=== PATIENT | female | born 1955 | race Caucasian/White ===

== ENCOUNTER → 2017-03-28 07:56 | Outpatient (CLI) | payer OTHER, SELFPAY ==
[2017-03-28 07:47] VITALS: BP 106/68
--- NOTE | 2017-03-28 08:02 | RAD_ITS ---
STUDY: X-RAY - RIGHT HAND REASON FOR EXAM: Female, 61 years old. Pain along the second through fifth digits following hyperextension injury. TECHNIQUE: 3 view(s) of the hand. COMPARISON: None. FINDINGS: Normal radiocarpal articulation. Normal distal radioulnar joint. Normal visualized carpal bones. Normal carpal articulations Normal carpometacarpal articulation of the thumb. Normal second through fifth carpometacarpal joints. Normal metacarpi. Normal metacarpophalangeal joint of the thumb. Normal interphalangeal joint of the thumb. Normal proximal and distal phalanges of the thumb. Normal metacarpophalangeal joints of the second through fifth fingers. Normal proximal and distal interphalangeal joints of the second through fifth fingers. Normal phalanges of the second through fifth fingers. The soft tissue structures are unremarkable. RAD/Hand Min 3 Views IMPRESSION: Normal x-ray examination of the hand. Electronically Signed: Duc Fox MD at 8:43 EST Tel [phone], Service support ,
== END ==
PROVIDERS: Family Provider Internal Medicine; PCP Internal Medicine; Visit Provider Physician Assistant Surgical
DX: S66.911A Strain of unspecified muscle, fascia and tendon at wrist and hand level, right hand, initial encounter (principal); X58.XXXA Exposure to other specified factors, initial encounter
CPT/HCPCS: 73130

== ENCOUNTER 2017-06-01 14:00 | Outpatient (RCR) | payer OTHER, SELFPAY ==
--- NOTE | 2017-05-05 14:04 | HP.OTEVAL_ITS ---
Patient's Visit Information FRANSISCA MIRZA is a 61 year old F, referred to Occupational Therapy by ALEJANDRA Courtney,[email or web address], with a diagnosis of Hand and finger strain. Date of Evaluation: 05/05/17 Occupational Therapist: Beatrice Rider - Subjective Subjective: Fransisca arrived and noted she tripped and fell over rubber mat at work on March 28, 2017. She works for [employer]. She noted that as she caught herself with R dominant hand. She noted she was able to watch injury occur and she said she hyperextended hand to the point of it blancing. She notes at time of inital injury she was unable to make active composite fist. - Pain Right Hand 2 Pain Intensity Range: 2, 6 - ROM Wrist: flexion R 0-75, L 0-91; ext R 0-46, L 0-65; radial dev R 0-17, L 0-21 MP: 2-5th: R 10-59, 8-69, 3-69, 3-69, 17-78; L 0-90, 0-91, 0-85, 0-85 ROM Comments: ulnar dev R 0-30, L 0-32. Distal from paln to middle finger while forming composite fist R .5 inch, L o inches. Notes some increased pain and tenderness when forming composite fist. - Strength Emergency Room Registered Nurse: Avg 3 trials R 28, L 50 Lateral Pinch: R 9, L 13 Tripod Pinch: R 8, L 13 Tip-to-Tip Pinch: R 6, L 8 - Sensation Thumb: R 3.22 Index: R 2.38 Middle: R 2.83 Ring: R 2.83 Little: R 2.83 Sensation Comments: She noted that she has numbness in all fingers. She noted she had numbness on distal phalax of all fingers. All touch fingers on volar fingerpad are WFL with 2-5th fingers being 2.83 and thumb 3.22. - DASH-Disabilities of Arm, Shoulder& Hand DASH Sum: 64 - Hand/Wrist Evaluation Total Score of Pain & Functional Sections: 23 - Goals Goal:: Fransisca to increased R diamond cleaner strength by 20-30 lbs to promote increased diamond cleaner to complete ADl/IADls including work tasks by time of d/c. Goal:: Fransisca to increase R hand ROM to than of L nonaffected hand to promote increased formation of composite fist for gripping and manipulating ADl/IADls related tasks by d/c. Goal:: Fransisca to have pain no more than 1/10 during work-related tasks to promote increased 9i0 and ability to return to PLOF by d/c. Goal:: Fransisca to be (I) with all bilateral hand coordination and manipulation tasks needed for ADl/IADls to return to PLFO by d/c. - Rehabilitation General Assessment: Pt., Fransisca, arrived and noted that she fell Feburary 2017 while at work. She notes she has had increased pain and swelling since time of injury. She is R hand dominant and injury occured to R hand. Fransisca noted she has x-ray which indicated no fractures at this time. She is limited due to pain for ADL/IADLs. Dieter nd strength limited at this time. She will start OT to promote decreasing paina nd promoting increased ability to return to PLOF. Rehabilitation Potential: Good - Anticipated Interventions Anticipated Interventions: A/AAROM/PROM, Strengthening, Edema Control, Scar Care , Modalities, Joint Protection/Energy Conservation, Ergonomic Education, Dynamic Sitting Balance, Fine Motor Coord/Tee, ADL Training, Caregiver Training, Home Program - Visit Plan Frequency: 3x /Week Duration: 4 Weeks General Plan: Fransisca to be seen by OT for 3x weekly 30 min session for 4 weeks. SHe has date limit for 04/28/17-06/02/17. OT to work on ROM, strength, endurance, edema management, pain management through modalities, and general ability to return to all ADl/AIDls by d/c. TEXT: Thank you for the opportunity to evaluate your patient. For Medicare and Medicare HMO plans, please review the plan of care and approve it. It will need to be FAXED BACK to us at [phone] for Medicare purposes. Please let me know if there are questions or concerns regarding this plan of care. Physician Signature: Date:
--- NOTE | 2017-06-01 14:46 | HP.OTDCSUM ---
HP - OT D/C Summary It has been my pleasure to treat FRANSISCA MIRZA under orders from ALEJANDRA Courtney, for the diagnosis of Hand and finger strain for a total of 12 visit(s). Please see the following information for a summary of their discharge status. - Objective Objective/Function: Rassessment occured on this date. Pain is persisent and variable. She is able to form composite fist. ROM measurements are as follows: wrist flexion R 0-80, L 0-95; ext R 0-60, L 0-58; supination WFL; radial deviation R 0-15, L 0-21; ulnar R 0-28, L 0-30. MCP 2nd-5th: R 0-66, 0-74, 0-76, 0-83; L 2-4th 0-79, 0-89, 0-81, 0-88. Strength measurements are as follows: personnel administrator R 41, L 46; lateral R 13, L 14; three jaw R 9, L 12; tip pinch R 5, L 7. DASH score progressed from 23 to 15 which further indicates some improvement. - Goals Patient Goals: Regain Mobility, Regain Strength, Decrease Pain, Decrease Swelling/Stiffness, Improve Fine Motor Skills, Use Hand/Wrist/Arm Normally Again, Sleep Better, Decrease Tingling/Numbness, Increase ROM, Be More Independent in ADLS, Resume Former Household Responsibilities (Cooking,Cleaning,Yard, etc.), Resume Hobbies Goal:: Fransisca to increased R personnel administrator strength by 20-30 lbs to promote increased personnel administrator to complete ADl/IADls including work tasks by time of d/c. Goal:: Fransisca to increase R hand ROM to than of L nonaffected hand to promote increased formation of composite fist for gripping and manipulating ADl/IADls related tasks by d/c. Goal:: Fransisca to have pain no more than 1/10 during work-related tasks to promote increased 9i0 and ability to return to PLOF by d/c. Goal:: Fransisca to be (I) with all bilateral hand coordination and manipulation tasks needed for ADl/IADls to return to PLFO by d/c. - Plan Plan: Roger be d/c'd at this time. If she needs addition OT new c9 will be needed. She is to call with questions/concerns. She is to return for follow up at [facility] with GUSTAVO Crenshaw for pain. She may benefit from further imaging if pain persists as an issue. Overall, she has progressed sincetime of inital eval. - D/C Information If there are questions or concerns regarding this patient's occupational therapy, please fell free to call me at [phone]. Thank you for the referral of this patient. Sincerely, Beatrice Rider
== END 2017-06-01 19:00 | disposition home or self-care (01) ==
LOC: OT 14:00
PROVIDERS: Family Provider Internal Medicine; PCP Internal Medicine; Visit Provider Physician Assistant
DX: S66.911D Strain of unspecified muscle, fascia and tendon at wrist and hand level, right hand, subsequent encounter (principal)
CPT/HCPCS: 97035; 97110; 97166; 97530

== ENCOUNTER → 2022-11-24 | Outpatient (CLI) | payer MEDICARE, SELFPAY ==
--- NOTE | 2022-11-24 11:22 | US_ITS ---
STUDY: ABDOMINAL ULTRASOUND - RIGHT UPPER QUADRANT REASON FOR VISIT: Female, 66 years old RUQ pain R/U Cholecystitis TECHNIQUE: Ultrasound evaluation of the right upper quadrant was performed with real-time and static rucker-scale imaging. TECHNICAL QUALITY: Adequate. COMPARISON: None. FINDINGS: Liver: The liver measures 12.6 cm. There is normal echogenicity of the liver. The bile ducts are within normal limits. There is hepatic color flow. The direction of portal flow is hepatopetal. There is no demonstrated mass lesion. Gallbladder: Normal distended gallbladder. The gallbladder wall measures 1.1 mm. There is a negative sonographic Brady''s sign. There is no pericholecystic fluid. There are no gallstones. Common Bile Duct (C.B.D.): The common bile duct measures 4.4 mm. Pancreas: Normal size of the head, body and tail of the pancreas. There is normal echogenicity of the pancreas. There is no demonstrated pancreatic mass or cyst. Right Kidney: Normal size of the right kidney. The right kidney measures 10.9 cm x 4 cm x 3 cm. Normal renal cortex. The right cortex measures 1.0 cm. There is a 1.4 cm x 1 centimeter by 0.9 cm cyst in the upper pole. There is no right hydronephrosis. US/Abdomen Limited IMPRESSION: Small right renal cyst. Electronically Signed: Duc Fox MD at 9:47 EDT ,
== END | disposition home or self-care (01) ==
PROVIDERS: PCP Internal Medicine; Referring Provider Nurse Practitioner Family; Visit Provider Nurse Practitioner Family
DX: R10.11 Right upper quadrant pain (principal)
CPT/HCPCS: 76705

== ENCOUNTER → 2022-11-26 | Outpatient (CLI) | payer MEDICARE, SELFPAY ==
[2022-11-26 11:08] LABS: Absolute Lymphocyte Count 2.08 X10^3/uL (0.83-4.51); Absolute Neutrophil Count 4.8 X10^3/uL (2.0-7.7); Basophil# 0.03 X10^3/uL; Basophil% 0.4 % (0-1); Eosinophils% 5.1 % (0-5); Hematocrit 40.4 % (37-47); Hemoglobin 13.2 g/dL (12.0-15.0); Lymphocyte # 2.08 X10^3/ul (0.83-4.51); Lymphocyte % 26.7 % (19-41); Mean Corp Hgb Conc 32.7 g/dL (32-36); Mean Corpuscular Hgb 29.9 pg (27.0-32.0); Mean Corpuscular Volume 91.4 fL (81-99); Mean Platelet Vol. 10.6 fl (6.2-12.0); Monocyte% 6.4 % (0-10); NRBC Flagged by Analyzer 0 % (0-5); Neutrophil # 4.75 X10^3/uL (2.7-7.7); Neutrophil % 60.9 % (47-70); Platelet Count 198 K/mm3 (150-450); RBC Distribution Width CV 13.5 % (11.6-14.6); RBC Distribution Width SD 45.1 fl (35.1-43.9); Red Blood Count 4.42 M/mm3 (4.2-5.4); White Blood Count 7.8 K/mm3 (4.4-11.0)
[2022-11-26 11:37] LABS: ALB/GLOB Ratio 1.1 RATIO (0.9-2.4); AST(SGOT) 18 U/L (15-37); Alanine Aminotransfer ALT/SGPT 30 U/L (13-56); Albumin, Serum 3.8 g/dL (3.2-5.0); Alkaline Phosphatase 62 U/L (45-117); Amylase 36 U/L (25-115); Anion Gap 2 (5-15); BUN 13 mg/dL (7-18); BUN/Creat Ratio 17.7 RATIO (10-20); Calcium,Total 9.2 mg/dL (8.5-10.1); Chloride 108 mmol/L (98-107); Creatinine, Serum 0.73 mg/dL (0.55-1.02); EST Glomerular Filtration Rate 84 mL/min (>60); Est Glom Filt Rate - Afr Amer 102 mL/min (>60); Globulin 3.4 g/dL (2.2-4.2); Glucose 89 mg/dL (74-106); Lipase 48 U/L (13-75); Potassium 4.3 mmol/L (3.5-5.1); Protein, Total 7.2 g/dL (6.4-8.2); Sodium Level 139 mmol/L (136-145)
== END | disposition home or self-care (01) ==
PROVIDERS: PCP Internal Medicine; Referring Provider Nurse Practitioner Family; Visit Provider Nurse Practitioner Family
DX: R10.11 Right upper quadrant pain (principal)
CPT/HCPCS: 36415; 80053; 82150; 83690; 85025

== ENCOUNTER 2023-02-16 15:00 | Outpatient (RCR) | payer MEDICARE, SELFPAY ==
--- NOTE | 2023-01-03 15:13 | HP.PTEVAL ---
Patient's Visit Information Visit Information Visit Information: KEENAN MIRZA is a 67 year old F referred to Physical Therapy by Dr. Steph Small DO with a diagnosis of PAIN IN RIGHT KNEE. Date of Evaluation: 01/03/23 Physical Therapist: Antonio Hall, PT, Cert MDT, OCS Visit Plan Frequency: 2x /Week Duration: 4 Weeks Plan: PT INTERVTIONS ROM /FLEXABLITY ,STRENGTHENING QUADS/HAMS/HIP ,FUNCTIONAL STRENGTHENING , PROPRIOCEPTION ,BIKE AND MODALITIES Subjective Subjective: This 67 y/o female presents to physical therapy with right knee pain. Patient injury right knee playing pickle ball ~ 6 weeks . Patient attempted to continue playing about 4 times .last time about 2 weeks ago . Patient finished the game but pain became worse. Patient pain medial knee described as ache and occasional sharp pain and edema. Patient aggravating factors kneeling, squat ,stairs ,pivoting occasional wants to give way. Patient pain becomes stiff with sitting to get up. Patient condition get better with ice. Seen DR tried and provided prednisone from the swelling. Patient had x-rays -.Patient denies paresthesia/tingling. Patient has pain at night. Patient condition affects QOL and function as well return to playing pickle ball. Goals to decrease pain and play pickle ball. Patient has osteoporosis. SOCIAL: VOCATION: retired Pain Right Knee: Pain Intensity (Out of 10): 5 Pain Intensity Range: 10 Objective Objective: POSTURE: mild forward posture GAIT: reciprocal pattern mild decrease stance right leg EDEMA: mild effusion knee NEURO: denies paresthesia/tingling AROM: supine knee flexion 0-125 degrees with pain at ER MMT: quads/hamstrings 4/5 ,hip flexion 4/5 , (peak force) hip abd 17 .7 PROPRIOCEPTION: diminished < 60 SEC Special Tests R Knee Dena - Meniscus: Positive R Knee Apley - Meniscus: Positive R Knee Yoon - ACL: Negative R Knee Anterior Drawer - ACL: Negative R Knee Valgus - MCL: Positive R Knee Varus - LCL: Positive R Knee Patellar Grind - PFS: Negative Balance/Special Test Scores Lower Extremity Functional Score: 45 Goals Goal 1:: Patient to be I with HEP Goal Time Frame: 4-6 Weeks Goal 2:: Patient to improve AROM knee flexion by 10 degrees to do steps Goal Time Frame: 4-6 Weeks Goal 3:: Patient demonstrate 60% improvement with less pain and improved function and return to pickle ball Goal Time Frame: 4-6 Weeks Goal 4:: Patient to improve peak force of hips by 10 # to improve function and return to playing pickle ball Goal Time Frame: 4-6 Weeks Goal 5:: Patient to be improve LFES score by 5-10 points to improve function and QOL Goal Time Frame: 4-6 Weeks Goal 6:: Patient return to pickle ball with min limiations Goal Time Frame: 4-6 Weeks Rehabilitation Potential Physical Therapy Diagnosis: This patient has medial knee pain with possible meniscus with pain decrease ROM ,strength ,function , impairs gait /stairs and ability to return to [employer] ball thus will benefit from skilled PT Rehabilitation Potential: Good Anticipated Interventions Patient/Client Instruction: Educate patient on: Condition and Plan of Care For the Purpose of:: To decrease pain, To increase ROM, To improve nutrient delivery to tissue, To increase oxygenation perfusion, To improve muscle performance and motor function, To increase tolerance to activity/condition/position, To improve ability of physical actions for home/community/work/leisure, To improve gait and locomotor functions, To improve health of tissue, To decrease soft tissue restriction, To improve endurance, To reduce risk of recurrence and Other Other: PICKLE BALL Therapeutic Exercise to Include: Strength training, Endurance training, Balance training, Flexibilty training and Active ROM Comment: QUADS/HAMS/HIP For the Purpose of:: To decrease pain, To increase ROM, To improve muscle performance and motor function, To improve ability to perform ADL's, To increase tolerance to activity/condition/position, To improve ability of physical actions for home/community/work/leisure, To improve health of tissue, To decrease soft tissue restriction, To increase flexibility/ROM, To improve endurance and To prevent re-injury TENS: Yes IF ES: Yes Cryotherapy (ice pack, ice massage): Yes Thermo therapy (hot pack): Yes Ultrasound (thermal/non thermal): Yes For the Purpose of:: To decrease pain, To increase ROM, To improve nutrient delivery to tissue, To increase oxygenation perfusion, To improve health of tissue and To decrease soft tissue restriction Text: Thank you for the opportunity to evaluate your patient. For Medicare and Medicare HMO plans, please review the plan of care and approve it. It will need to be FAXED BACK to us at [phone] for Medicare purposes. For Medicare only, by signing this I certify the plan of care. Please let me know if there are questions or concerns regarding this plan of care. Physician Signature: Date:
--- NOTE | 2023-02-16 15:23 | HP.PTDCSUM ---
Discharge Summary D/C summary: It has been my pleasure to treat KEENAN MIRZA referred by Dr. Steph Small DO, with the diagnosis of PAIN IN RIGHT KNEE for a total of 9 visit(s). Discharge Date: Please see the following information for a summary of their discharge status. Subjective Subjective: Feeling better with overall .. No pain at night and rotation and turning in bed But unable to return to pickle Pain Right Knee: Pain Intensity (Out of 10): 3 Overall Improvement % Improvement: 70 Objective Objective/Function: POSTURE: mild forward posture GAIT: reciprocal pattern mild decrease stance right leg EDEMA: no edema NEURO: denies paresthesia/tingling AROM: supine knee flexion 0-135 degrees mild flexion MMT: quads/hamstrings 4/5 ,hip flexion 4/5 , (peak force) hip abd 29 .7 PROPRIOCEPTION: diminished < 60 SEC Goals Goal 1:: Patient to be I with HEP Goal Progress: Goal Met Goal 2:: Patient to improve AROM knee flexion by 10 degrees to do steps Goal Progress: Goal Met Goal 3:: Patient demonstrate 60% improvement with less pain and improved function and return to pickle ball Goal Progress: Goal Met Goal 4:: Patient to improve peak force of hips by 10 # to improve function and return to playing pickle ball Goal Progress: Goal Met Goal 5:: Patient to be improve LFES score by 5-10 points to improve function and QOL Goal Progress: Goal Met Goal 6:: Patient return to pickle ball with min limiations Plan Plan: D/C D/C Information d/c sentence: If there are questions or concerns regarding this patient's physical therapy, please feel free to call me at [phone]. Thank you for the referral of this patient. Sincerely, Antonio Hall, PT, Cert MDT, OCS Balance/Gait/Functional tests Balance/Special Test Scores Lower Extremity Functional Score: 67 Improvement % Improvement: 70
== END 2023-02-16 17:05 | disposition home or self-care (01) ==
LOC: PT 15:00
PROVIDERS: PCP Internal Medicine; Visit Provider Internal Medicine
DX: M25.561 Pain in right knee (principal)
CPT/HCPCS: 97110; 97162; 97530